=== PATIENT | female | born 1990 | race Caucasian/White ===

== ENCOUNTER 2019-01-20 18:03 | Emergency (ER) | payer MEDICAID ==
[~2019-01-20] VITALS: Ht 157.5 cm; Wt 91.0 kg
[2019-01-20 20:45] VITALS: BP 119/78
== END 2019-01-20 22:12 | disposition home or self-care (01) ==
LOC: ED 22:09
DX: N83.201 Unspecified ovarian cyst, right side (principal); R10.32 Left lower quadrant pain; F17.200 Nicotine dependence, unspecified, uncomplicated
CPT/HCPCS: 36415; 76830; 80048; 81003; 82040; 84703; 85025; 96372; 99284; J1885